=== PATIENT | female | born 1935 | race Caucasian/White ===

== ENCOUNTER 2016-08-08 01:10 | Inpatient (IN) | payer OTHER ==
[~2016-08-08] VITALS: Ht 157.5 cm; Wt 78.1 kg
[2016-08-08 01:43] LABS: HEMOGLOBIN 13.9 gm/dl (12.3-15.3); RED BLOOD COUNT 4.6 M/UL (4.00-5.10); WHITE BLOOD COUNT 15.5 K/UL (4.5-11.0)
[2016-08-08] MEDS ORDERED: NEURONTIN 300300 MG PO (04:14)
[2016-08-08] MEDS ORDERED: NORVASC 5 MG TAB5 MG PO (04:15)
[2016-08-08] MEDS ORDERED: LIPITOR TAB 2020 MG PO (04:15)
[2016-08-08] MEDS ORDERED: COZAAR100 MG PO (04:15)
[2016-08-08] MEDS ORDERED: TENORMIN 50 MG50 MG PO (04:15)
[2016-08-08] MEDS ORDERED: PRINIVIL10 MG PO (04:16)
[2016-08-08] MEDS ORDERED: PLAVIX 75 MG TA75 MG PO (04:16)
[2016-08-08] MEDS ORDERED: ARICEPT10 MG PO (04:16)
[2016-08-08] MEDS ORDERED: DITROPAN 5 MG TA5 MG PO (04:17)
[2016-08-08] MEDS ORDERED: ATIVAN0.5 MG PO (04:17)
[2016-08-08] MEDS ORDERED: RANITIDINE HCL300 MG PO (04:18)
[2016-08-08] MEDS ORDERED: POTASSIUM CHLO20 ME1 PO (04:18)
[2016-08-08] MEDS ORDERED: ZOLOFT50 MG PO (04:19)
[2016-08-08] MEDS ORDERED: VITAMIN D250000 UNIT PO (04:20)
[2016-08-08] MEDS ORDERED: LASIX 40 MG TAB40 MG PO (04:20)
[2016-08-08] MEDS ORDERED: MIRALAX PACK 171 PKT PO (04:21)
[2016-08-08] MEDS ORDERED: LEVEMIR100 UNIT/1 SC (04:22)
[2016-08-08] MEDS ORDERED: NOVOLOG 10100 UNITS/ INJ (04:23)
[2016-08-08 05:25] LABS: HEMOGLOBIN 12.4 gm/dl (12.3-15.3); RED BLOOD COUNT 4.11 M/UL (4.00-5.10); WHITE BLOOD COUNT 17.3 K/UL (4.5-11.0)
[2016-08-08] MEDS ORDERED: IMDUR ER TAB 3030 MG PO (13:23)
[2016-08-08] MEDS ORDERED: NITROGLYCERIN0.4 MG SL (13:24)
== END 2016-08-08 14:15 | disposition home or self-care (01) | DRG 293 ==
LOC: ER1 01:10 → MED SURG 4 03:08
PROVIDERS: Specialist/Technologist Athletic Trainer; ADMIT Internal Medicine
DX: I11.0 Hypertensive heart disease with heart failure (principal); I50.31 Acute diastolic (congestive) heart failure; E11.65 Type 2 diabetes mellitus with hyperglycemia; I20.9 Angina pectoris, unspecified; R06.02 Shortness of breath; E78.5 Hyperlipidemia, unspecified; Z79.4 Long term (current) use of insulin; Z79.899 Other long term (current) drug therapy
CPT/HCPCS: ECHO; 36415; 36600; 71010; 80053; 82550; 82553; 82803; 82962; 83605; 83735; 83874; 83880; 84100; 84439; 84443; 84484; 85025; 85610; 85730; 87040; 93005; 93306; 96374; 96375; 99285; J1650; J1940; J1956; J7030; Q0162